=== PATIENT | female | born 1990 | race Hispanic/Latino ===

== ENCOUNTER 2018-01-09 19:37 | Emergency (ER) | payer SELFPAY ==
[2018-01-09 20:11] VITALS: BP 110/70
[2018-01-09 21:27] LABS: Bilirubin,Urine NEG (Negative); Blood,Urine NEG (Negative); Color,Urine Yellow (Yellow); Mucus,Urine 2+ /HPF; Protein,Urine <15 mg/dL mg/dL (Negative); Urobilinogen,Urine < 2.0 mg/dL (<2.0)
== END 2018-01-10 01:42 | disposition left against medical advice (07) ==
LOC: ED 19:37
DX: N89.8 Other specified noninflammatory disorders of vagina (principal); Z53.21 Procedure and treatment not carried out due to patient leaving prior to being seen by health care provider
CPT/HCPCS: 81001; 87076; 87086; 87186

== ENCOUNTER 2021-04-03 14:05 | Emergency (ER) | payer SELFPAY | END 2021-04-03 18:35 | LOC: ED 14:05 | DX: R10.9 Unspecified abdominal pain (principal); Z53.21 Procedure and treatment not carried out due to patient leaving prior to being seen by health care provider ==

== ENCOUNTER 2021-05-13 12:56 | Emergency (ER) | payer SELFPAY ==
[2021-05-13] MEDS ORDERED: PHENAZOPYRIDINE 200 MG TAB PO ONE (13:43)
--- NOTE | 2021-05-13 13:43 | Emergency Department Report ---
ED Female HPI - General Stated complaint: AB PAIN/LOWER BACK PAIN Time Seen by Provider: 05/13/21 13:42 - History of Present Illness Initial comments: Patient presents with dysuria and lower abdominal pain assist with back pain. She states that this been going on for several months now. It worsened over the last couple of days. She states it has been waxing and waning. When she drinks a lot of water, her symptoms improved but never resolved. If she does not drink a lot of water, the symptoms seem to be worse. She was given a prescription for Bactrim previously, but she states that she lost the prescription. She also is concerned because her mother had cervical cancer and some other type of cancer. She is concerned that she could be having cancer. She has not gone to a spray maker. Last menstrual period was approximately 2 weeks ago and was normal for her. Pain is described as burning with urination. She does not really have abdominal pain. There is no flank pain, she actually states that her pain is in the lower back. The pain does not radiate or migrate. She has not taken anything for pain. - Related Data Previous Rx's Medication Instructions Recorded Last Taken Type Phenazopyridine [Pyridium] 200 mg PO TID #10 tab 05/13/21 Unknown Rx cephALEXin [Keflex] 500 mg PO Q8HR #20 cap 05/13/21 Unknown Rx Allergies Allergy/AdvReac Type Severity Reaction Status Date / Time No Known Allergies Allergy Unverified 01/09/18 20:06 ED Review of Systems ROS: Stated complaint: AB PAIN/LOWER BACK PAIN Other details as noted in HPI Comment: All other systems reviewed and negative Constitutional: denies: fever Eyes: denies: eye pain ENT: denies: throat pain Respiratory: denies: cough Cardiovascular: denies: chest pain Endocrine: denies: unexplained weight loss Gastrointestinal: as per HPI Genitourinary: as per HPI Musculoskeletal: as per HPI Skin: denies: rash Neurological: denies: headache Hematological/Lymphatic: denies: easy bruising ED Past Medical Hx - Past Medical History Previous Medical History?: Yes Additional medical history: UTI - Social History Smoking Status: Current Every Day Smoker Substance Use Type: None, Other ( we discussed tobacco cessation x3 minutes) - Medications Home Medications: Home Medications Medication Instructions Recorded Confirmed Last Taken Type Phenazopyridine [Pyridium] 200 mg PO TID #10 tab 05/13/21 Unknown Rx cephALEXin [Keflex] 500 mg PO Q8HR #20 cap 05/13/21 Unknown Rx ED Physical Exam - General Limitations: No Limitations, Other ( pulse ox was noted and normal. Patient is not hypoxic.) General appearance: alert, in no apparent distress - Head Head exam: Present: atraumatic, normocephalic, normal inspection - Eye Eye exam: Present: normal appearance, EOMI. Absent: scleral icterus - ENT ENT exam: Present: normal exam, normal external ear exam - Neck Neck exam: Present: normal inspection. Absent: meningismus - Respiratory Respiratory exam: Present: normal lung sounds bilaterally. Absent: respiratory distress - Cardiovascular Cardiovascular Exam: Present: regular rate, normal rhythm - GI/Abdominal GI/Abdominal exam: Present: soft. Absent: distended, tenderness - Extremities Exam Extremities exam: Present: normal capillary refill. Absent: pedal edema - Back Exam Back exam: Absent: CVA tenderness (R), CVA tenderness (L) - Neurological Exam Neurological exam: Present: alert, oriented X3 ED Course Vital Signs 05/13/21 05/13/21 13:40 14:52 Temperature 98.4 F 98.0 F Pulse Rate 69 78 Respiratory 20 12 Rate Blood Pressure 126/82 Blood Pressure 125/84 [Right] O2 Sat by Pulse 100 100 Oximetry - Reevaluation(s) Reevaluation #1: 05/13/21 15:44 UA was noted. Antibiotics were ordered and the patient was discharged. ED Medical Decision Making - Medical Decision Making Patient presents with flank pain and dysuria. She actually really had lower back pain and not unilateral flank pain concerning for pyelonephritis. She does have evidence of a cystitis without evidence of . Ectopic has been excluded. Patient was treated empirically with antibiotics. She was instructed to take all of the antibiotics. We have discussed water and hydration. She will be referred to her PCP for recheck and consideration of repeat UA. Critical Care Time: No Critical care attestation.: If time is entered above; I have spent that time in minutes in the direct care of this critically ill patient, excluding procedure time. ED Disposition Clinical Impression: UTI (urinary tract infection) Qualifiers: Urinary tract infection type: acute cystitis Hematuria presence: without hematuria Qualified Code(s): N30.00 - Acute cystitis without hematuria Disposition: 01 HOME / SELF CARE / HOMELESS Is pt being admited?: No Does the pt Need Aspirin: No Condition: Stable Instructions: Antibiotic Medicine, Adult, Urinary Tract Infection, Adult Additional Instructions: Drink plenty water. Take the antibiotics. Return for problems. Follow-up with a regular doctor for recheck. Prescriptions: cephALEXin [Keflex] 500 mg PO Q8HR #20 cap Phenazopyridine [Pyridium] 200 mg PO TID #10 tab
[2021-05-13 15:04] LABS: HCG Qualitative,Urine Negative (Negative)
[2021-05-13 15:15] LABS: Bilirubin,Urine NEG (Negative); Blood,Urine SM (Negative); Color,Urine Yellow (Yellow); Mucus,Urine FEW /HPF
[2021-05-13 17:34] VITALS: BP 125/73
== END 2021-05-13 17:36 | disposition home or self-care (01) ==
LOC: ED 12:56
DX: N39.0 Urinary tract infection, site not specified (principal); F17.200 Nicotine dependence, unspecified, uncomplicated; Z79.899 Other long term (current) drug therapy
CPT/HCPCS: 81001; 81025; 99283